=== PATIENT | male | born 1990 | race Two or more races ===

== ENCOUNTER 2019-04-20 12:57 | Emergency (ER) | payer MEDICAID ==
[~2019-04-20] VITALS: Ht 170.2 cm; Wt 75.0 kg
[2019-04-20 13:00] VITALS: BP 120/74
[2019-04-20] MEDS ORDERED: LIDOCAINE HCL 1% 20ML VIAL (Pyxis) INJ INFIL ONE (13:45)
[2019-04-20] MEDS ORDERED: TETANUS, DIPHTHERIA, PERTUSSIS VAC/PF 0.5ML (>7YR OLD) IM ONE (13:45)
== END 2019-04-20 15:15 | disposition left against medical advice (07) ==
LOC: ER 12:57
DX: S61.212A Laceration without foreign body of right middle finger without damage to nail, initial encounter (principal); S61.411A Laceration without foreign body of right hand, initial encounter; F32.9 Major depressive disorder, single episode, unspecified; W25.XXXA Contact with sharp glass, initial encounter; Y93.89 Activity, other specified; Y92.018 Other place in single-family (private) house as the place of occurrence of the external cause
CPT/HCPCS: 12002; 73130; 90471; 90715; 99284; A4217; J3490; Z7610

== ENCOUNTER 2019-05-18 01:20 | Emergency (ER) | payer OTHER ==
[~2019-05-18] VITALS: Ht 172.7 cm; Wt 93.7 kg
[2019-05-18 01:58] VITALS: BP 156/66
== END 2019-05-18 05:30 | disposition left against medical advice (07) ==
LOC: ER 01:20
DX: Z53.21 Procedure and treatment not carried out due to patient leaving prior to being seen by health care provider (principal)

== ENCOUNTER 2019-10-05 21:18 | Emergency (ER) | payer OTHER ==
[~2019-10-05] VITALS: Ht 170.2 cm; Wt 89.0 kg
[2019-10-05] MEDS ORDERED: IBUPROFEN 600MG TABLET PO ONE (22:30)
[2019-10-06 00:02] VITALS: BP 128/87
== END 2019-10-06 00:07 | disposition home or self-care (01) ==
LOC: ER 21:18
DX: M54.5 Low back pain (principal)
CPT/HCPCS: 72100; 99283

== ENCOUNTER 2020-07-01 16:04 | Emergency (ER) | payer OTHER ==
[~2020-07-01] VITALS: Ht 172.7 cm; Wt 78.0 kg
[2020-07-01] MEDS ORDERED: ONDANSETRON HCL 4MG/2ML INJ IV ONE (17:00)
[2020-07-01] MEDS ORDERED: SODIUM CHLORIDE 0.9% 1,000 ML IV ONE ×2 (17:00→18:45)
[2020-07-01] MEDS ORDERED: CLONIDINE 0.1MG TABLET PO ONE ×2 (17:00→18:45)
[2020-07-01 18:09] LABS: BASOPHILS % 0.4 % (0.0-2.0); HEMATOCRIT. 49.2 % (42.0-52.0); HEMOGLOBIN. 16.6 g/dL (14.0-18.0); LYMPHOCYTES % 10.1 % (20.0-50.0); MEAN CORPUSCULAR HEMOGLOBIN 26.9 pg (28.0-32.0); MEAN CORPUSCULAR VOLUME 79.9 fL (80.0-94.0); MONOCYTES % 10.2 % (2.0-8.0); NEUTROPHILS % 79.3 % (40.0-76.0); PLATELET 477 x1000/uL (130-400); RED BLOOD CELL COUNT 6.16 mill/uL (4.7-6.1); RED CELL DISTRIBUTION WIDTH 13.5 % (11.6-14.6)
[2020-07-01 18:15] LABS: CHLORIDE 91 mEq/L (98-107)
[2020-07-01] MEDS ORDERED: POTASSIUM CHLORIDE 20MEQ TABLET SR PO NR (18:45)
[2020-07-01] MEDS ORDERED: CLONIDINE 0.1MG TABLET PO NR (19:00)
[2020-07-01] MEDS ORDERED: MAGNESIUM 2 G PREMIX 50 ML IV ONE (19:30)
[2020-07-02 02:47] VITALS: BP 138/89
== END 2020-07-02 02:52 | disposition short-term general hospital (02) ==
LOC: ER 16:04
DX: R11.2 Nausea with vomiting, unspecified (principal); F11.23 Opioid dependence with withdrawal; I49.9 Cardiac arrhythmia, unspecified
CPT/HCPCS: 36415; 80053; 85025; 93005; 96361; 96365; 96375; 99285; J2405; J3475; J7030